=== PATIENT | female | born 1940 | race Caucasian/White ===

== ENCOUNTER → 2016-08-13 | Outpatient (CLI) | payer MEDICARE ==
[~2016-08-13] MED LIST: ALLERCLEAR 10MG10 MG PO; AMLODIPINE BESYL5 MG PO; ANTIVERT PO; ASPIRIN PO; CALTRATE 600+D PO; CERTAGEN PO; CETIRIZINE; CRESTOR5 MG PO; GLUCOTROL PO; HEARTBURN RELIE10 MG PO; LIPITOR PO; LISINOPRIL PO; METFORMIN PO; NEURONTIN PO; OMEGA-3100 MG PO; ONDANSETRON HCL4 M1 PO; ONGLYZA5 MG PO; PHENERGAN12.5 MG PO; PRAVACHOL PO; PREVACID PO; PRILOSEC PO; PROTONIX; ZOFRANODT SL; ZOLPIDEM TARTRA10 M1 PO
--- NOTE | ~2016-08-13 | MY11 ---
[facility] A Service of [facility] RADIOLOGY TEXT RESULTS PATIENT: ZEB JACOB LOCATION: [facility] : 40 UNIT #: [id number] AGE: [address]: Kianna Amos MD SEX: F ORDER DR: [id number] [address] [address] [id number] O MR#: [id number] Acc #: [id number] NAME: ZEB JACOB : 1940 SEX: F STUDY DATE/TIME: 08/13/2016 13:53 UNIT: [facility]AD ROOM: STUDY DESCRIPTION: MY Mammogram Screening Dig Christopher Attending Physician: Kianna Amos M.D. Referring Physician: Kianna Amos M.D. Ordering Physician: Staff Doctor Not On Primary Care Physician: Kianna Amos M.D. MEDICAL IMAGING REPORT This report is preliminary unless electronic signature is present. EXAM Bilateral digital screening mammogram with CAD 08/13/1969 HISTORY Routine screening. COMPARISON Screening mammograms 09/12/2012 and 05/09/2015. TECHNIQUE Routine CC and MLO projections both breasts were obtained and reviewed with an FDA-approved CAD device. Exaggerated CC lateral view of the right breast was also performed. FINDINGS The breast tissue is heterogeneously dense which could obscure a lesion on mammography. No significant masses, suspicious microcalcifications, or other findings of concern. Post excisional biopsy changes in the right breast are again noted and appear unchanged from prior exam. Benign vascular calcifications again noted bilaterally. IMPRESSION BIRADS 2, benign findings. No mammographic evidence of malignancy. Follow up with routine annual screening. Patients over the age of 40 are entered into a reminder system with target due date for the next mammogram. A result letter will also be sent to the patient. BIRADS: 2, benign findings. [facility] A Service of [facility] RADIOLOGY TEXT RESULTS PATIENT: ZEB JACOB LOCATION: [facility] : 40 UNIT #: [id number] AGE: [address]: Kianna Amos MD SEX: F ORDER DR: Dictated by... Bienvenido Cole M.D. THIS IS AN ELECTRONICALLY VERIFIED REPORT Bienvenido Cole M.D. at 08/14/2016 7:02 AM DINO/mily TD: 08/13/2016 23:25 JOB #: [id number] MEDICAL IMAGING REPORT Page 1 of 1
--- NOTE | ~2016-08-13 | BD1 ---
[facility] A Service of [facility] & [facility] RADIOLOGY TEXT RESULTS PATIENT: ZEB JACOB LOCATION: [facility] : 40 UNIT #: [id number] AGE: [address]: Kianna Amos MD SEX: F ORDER DR: [id number] [address] [address] [id number] O MR#: [id number] Acc #: [id number] NAME: ZEB JACOB : 1940 SEX: F STUDY DATE/TIME: 08/13/2016 13:49 UNIT: [facility] ROOM: STUDY DESCRIPTION: BD Dexa Bone Dens 1+ Site Attending Physician: Kianna Amos M.D. Referring Physician: Kianna Amos M.D. Ordering Physician: Physician Non-Staff Primary Care Physician: Kianna Amos M.D. MEDICAL IMAGING REPORT This report is preliminary unless electronic signature is present. EXAM DXA scan, 08/13/2016 HISTORY Status post menopause with no hormone replacement therapy. Osteopenia. Arthritis and diabetes. Hypertension with blood pressure medication. FINDINGS Bone mineral density in the lumbar spine from L1-L4 is 1.251 g/cm2 which is 0.6 standard deviations above the mean when compared to the young adult reference population which is within the range of normal. This is 2.9 standard deviations above the mean when compared to the age-matched population. Bone mineral density in the left femoral neck was 0.929 g/cm2 which is 0.8 standard deviations below the mean when compared to the young adult reference population which is within the range of normal. This is 1.5 standard deviations above the mean when compared to the age-matched population. Bone mineral density in the right femoral neck was 0.944 g/cm2 which is 0.7 standard deviations below the mean when compared to the young adult reference population which is within the range of normal. This is 1.6 standard deviations above the mean when compared to the age-matched population. IMPRESSION Bone mineral density in the lumbar spine and the hips bilaterally within the range of normal. Dictated by... Werner R. Nasir, M.D. THIS IS AN ELECTRONICALLY VERIFIED REPORT Werner Best M.D. at 08/16/2016 12:18 PM KRT/kemi [facility]. [facility] A Service of [facility] & [facility] RADIOLOGY TEXT RESULTS PATIENT: ZEB JACOB LOCATION: [facility] : 40 UNIT #: [id number] AGE: [address]: Kianna Amos MD SEX: F ORDER DR: TD: 08/13/2016 21:16 JOB #: [id number] MEDICAL IMAGING REPORT Page 1 of 1
== END | disposition home or self-care (01) ==
LOC: SRAD 13:15
DX: Z12.31 Encounter for screening mammogram for malignant neoplasm of breast (principal); Z13.820 Encounter for screening for osteoporosis; R63.4 Abnormal weight loss; Z78.0 Asymptomatic menopausal state
CPT/HCPCS: 77080; G0202

== ENCOUNTER → 2016-11-23 | Outpatient (CLI) | payer MEDICARE ==
--- NOTE | ~2016-11-23 | CT114 ---
[facility] A Service of [facility] RADIOLOGY TEXT RESULTS PATIENT: ZEB JCAOB LOCATION: [facility] : 40 UNIT #: [id number] AGE: [address]: Kianna Aoms MD SEX: F ORDER DR: [id number] [address] [address] [id number] O MR#: [id number] Acc #: [id number] NAME: ZEB JACOB : 1940 SEX: F STUDY DATE/TIME: 11/23/2016 12:52 UNIT: [facility] ROOM: STUDY DESCRIPTION: CT Soft Tissue Neck W Cont Attending Physician: Kianna Amos M.D. Referring Physician: Kianna Amos M.D. Ordering Physician: Kianna Amos M.D. Primary Care Physician: Kianna Amos M.D. MEDICAL IMAGING REPORT This report is preliminary unless electronic signature is present. EXAM CT neck with contrast HISTORY 76-year-old female complains of mass in the left neck for years. States it has not changed in size. Looking for lymph node or possible vascular abnormality. FINDINGS Axial images performed through the neck from the skull base to the millie following IV contrast. Multiplanar reconstructions. This CT exam was performed with one or more of the following radiation dose reduction techniques: automatic exposure control, adjustment of mA and/or kV according to patient size, and iterative reconstruction. The parotid, submandibular and thyroid glands are unremarkable. Anatomic spaces within the head and neck appear maintained. No significant lymphadenopathy. In the area marked by the gel capsule no discrete mass lesion is identified. 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 Multilevel degenerative disc change is seen within the cervical spine C4-5, C5-6, C6-7. Skull base and upper thorax unremarkable. IMPRESSION No focal mass lesion to account for the patient's area of concern. Patient does have a prominent or dominant left internal jugular vein which may be a contributing factor to the patient's clinical presentation. Dictated by.Luis Knight M.D. [facility] A Service of [facility] & [facility] RADIOLOGY TEXT RESULTS PATIENT: ZEB JACOB LOCATION: [facility] : 40 UNIT #: [id number] AGE: [address]: Kianna Amos MD SEX: F ORDER DR: THIS IS AN ELECTRONICALLY VERIFIED REPORT Austin Knight M.D. at 11/25/2016 8:07 AM Harman TD: 11/24/2016 02:19 JOB #: [id number] MEDICAL IMAGING REPORT Page 1 of 1
[2016-11-23 12:50] LABS: POC - CREATININE 0.86 mg/dL (0.44-1.03); POC - GFR >60.0 mL/min (>60)
== END | disposition home or self-care (01) ==
LOC: SCT 12:41
PROVIDERS: Internal Medicine
DX: R22.1 Localized swelling, mass and lump, neck (principal)
CPT/HCPCS: 70491; 82565; Q9967